=== PATIENT | female | born 1990 | race African-American/Black ===

== ENCOUNTER 2021-12-07 19:22 | Emergency (ER) | payer OTHER, SELFPAY ==
--- NOTE | ~2021-12-07 | US_ITS ---
EXAMINATION: US OB transvaginal DATE: 12/07/2021 22:36 INDICATION: Vaginal bleeding during first trimester TECHNIQUE: Real-time pelvic transabdominal and transvaginal ultrasound was performed. COMPARISON: None. FINDINGS: The uterus measures 10.7 x 5.8 x 7.1 cm. Multiple uterine fibroids distort the uterus and endometrial complex. There is a questionable 11 mm fluid collection in the endometrial canal. There i s an apparent 1.5 x 1.3 cm oval mass of the right adnexa situated between the ovary and uterus with a central fluid component. There is questionable peripheral color flow. The right ovary is difficult t o visualize. The left ovary measures 2.6 x 1.1 x 1.3 cm. There is normal vascular flow in the left ov stephen. There is no free fluid in the pelvis. IMPRESSION: 1. of unknown location. Small fluid collection in the uterus could represent an early gesta tional sac however indeterminate fluid collection of the right adnexa could plausibly reflect an ecto pic versus corpus luteum. Close clinical monitoring is recommended with follow-up beta hCG and ultrasound as necessary. Reviewed, dictated and finalized at location F. IMPRESSION: 1. of unknown location. Small fluid collection in the uterus could re present an early gestational sac however indeterminate fluid collection of the right adnexa could plausibly reflect an ectopic versus corpus luteum. Close clinical monitoring is recommended with follow-up beta hCG and ultrasoun d as necessary.
[2021-12-07 19:32] VITALS: BP 127/82; PULSE 86; RESP 16; TEMP 36.6; O2SAT 100
[2021-12-07 21:34] LABS: Basophils Absolute Auto 0.1 K/mm3 (0.0-0.1); Basophils Percent Auto 0.9 % (0.2-1.2); Eosinophils Absolute Auto 0.4 K/mm3 (0-0.3); Eosinophils Percent Auto 6.7 % (0-4.4); Hematocrit 33.6 % (37.0-47.0); Hemoglobin 11.7 g/dL (12.0-15.0); Immature Granulocyte Absolute 0.01 K/mm3 (0.00-0.031); Immature Granulocyte Percent A 0.2 % (0-0.5); Lymphocytes Absolute Auto 1.96 K/mm3 (0.9-3.2); Lymphocytes Percent Auto 33.9 % (18.3-44.2); Mean Corpuscular HGB Conc 34.8 g/dl (32-36); Mean Corpuscular Hemoglobin 32.1 pg (26-34); Mean Corpuscular Volume 92.3 fl (80-100); Mean Platelet Volume 9.9 fl (7.4-10.4); Monocytes Absolute Auto 0.4 K/mm3 (0.1-0.6); Monocytes Percent Auto 6.7 % (2.6-8.5); Neutrophils Percent Auto 51.6 % (45.5-73.1); Platelet Count Result 291 k/mm3 (150-375); Red Blood Count 3.64 M/mm3 (4.2-5.4); Red Cell Distribution Width 11.8 % (11.5-14.5); White Blood Count 5.8 K/mm3 (4.5-10.0)
--- NOTE | 2021-12-07 23:02 | ED.FEMALEGU ---
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 Last period was November 05. No nausea or vomiting, no dysuria, no vaginal discharge. Related Data Allergies Allergy/AdvReac Type Severity Reaction Status Date / Time No Known Allergies Allergy Verified 12/07/21 19:22 Review of Systems Review of Systems: CONST: No fever. HEENT: No sore throat C/V: No chest pain RESP: No cough GI: No nausea or vomiting : No dysuria. Some vaginal spotting M/S: No joint pain. SKIN: No rash. NEURO: [No headache or focal numbness or weakness] PSYCH: [No depression] FORMERLY [facility] Past Medical History Medical History (Updated 12/08/21 @ 00:26 by Mariam Lutz MD) No active medical problems Social History Social History (Updated 12/07/21 @ 23:04 by Mariam Lutz MD) Alcohol intake: former Exam Narrative: EXAMINATION OF ORGAN SYSTEMS/BODY AREAS: Constitutional: Vital signs per nursing GENERAL:[No acute distress, non-toxic appearing.] HEAD: Normal with no signs of head trauma. EYES: EOMI, conjunctiva normal LUNGS: Nonlabored breathing. HEART: [Regular rate and rhythm] ABD: [Soft], [nontender to palpation] PELVIC: Scant blood in vault, no adnexal or CMT EXT: Normal range of motion SKIN: [No rashes or lesions.] NEURO: [Alert and oriented x 3. No gross focal sensory or strength deficits.] PSYCH: Normal affect Course Vital Signs Vital signs: Vital Signs Temperature 97.8 F 12/07/21 19:32 Pulse Rate 86 12/07/21 19:32 Respiratory Rate 16 12/07/21 19:32 Blood Pressure 127/82 12/07/21 19:32 Pulse Oximetry 100 12/07/21 19:32 Oxygen Delivery Room Air 12/07/21 19:32 Temperature 97.8 F 12/07/21 19:32 Pulse Rate 85 12/08/21 00:02 Respiratory Rate 18 12/08/21 00:02 Blood Pressure 122/34 L 12/08/21 00:02 Pulse Oximetry 100 12/08/21 00:02 Oxygen Delivery Room Air 12/07/21 19:32 MDM - Female Genitourinary MDM Narrative Medical decision making narrative: 31yoF presents with vaginal spotting and positive test, vital signs stable and she is well-appearing on evaluation, ambulating normally and has soft, nontender abdomen, no active vaginal bleeding on exam. Concern is for possible threatened versus possible implantation bleeding, or ectopic . Transvaginal ultrasound ordered. This show of unknown origin possibly ectopic, patient stable at this time with normal vitals, no abdominal pain, or tenderness, stable Hgb. I discussed the case with CLOSET ORGANIZER Dr Mina at [facility] who recommended patient follow-up at their center in 2 days for repeat hCG, discussed return precautions to nearest ER for any new or worsening abdominal pain or bleeding. Patient reports understanding and agreement with the findings and this plan. Lab Data Result diagrams: 12/07/21 21:28 Labs: Lab Results 12/07/21 12/07/21 12/07/21 Range/Units 21:28 21:28 21:28 WBC 5.8 (4.5-10.0) K/mm3 RBC 3.64 L (4.2-5.4) M/mm3 Hgb 11.7 L (12.0-15.0) g/dL Hct 33.6 L (37.0-47.0) % MCV 92.3 (80-100) fl MCH 32.1 (26-34) pg MCHC 34.8 (32-36) g/dl RDW 11.8 (11.5-14.5) % Plt Count 291 (150-375) k/mm3 MPV 9.9 (7.4-10.4) fl Immature Gran % (Auto) 0.2 (0-0.5) % Neut % (Auto) 51.6 (45.5-73.1) % Lymph % (Auto) 33.9 (18.3-44.2) % [place] % (Auto) 6.7 (2.6-8.5) % Eos % (Auto) 6.7 H (0-4.4) % Baso % (Auto) 0.9 (0.2-1.2) % Lymph # (Auto) 1.96 (0.9-3.2) K/mm3 [place] # (Auto) 0.4 (0.1-0.6) K/mm3 Eos # (Auto) 0.4 H (0-0.3) K/mm3 Baso # (Auto) 0.1 (0
[2021-12-08 00:02] VITALS: BP 122/34; PULSE 85; RESP 18; O2SAT 100
== END 2021-12-08 00:35 | disposition home or self-care (01) ==
PROVIDERS: Emergency Provider Emergency Medicine
DX: O20.9 Hemorrhage in early pregnancy, unspecified (principal); Z3A.00 Weeks of gestation of pregnancy not specified
CPT/HCPCS: 36415; 76817; 81025; 84702; 85025; 85461; 99284

== ENCOUNTER 2021-12-24 06:49 | Emergency (ER) | payer OTHER, SELFPAY ==
--- NOTE | ~2021-12-24 | US_ITS ---
EXAMINATION: US OB <=14 wk fetus w TV DATE: 12/24/2021 08:08 INDICATION: Pelvic pain and bleeding during first trimester TECHNIQUE: Real-time pelvic ultrasound utilizing both a transvaginal and transabdominal probe was pe rformed. The interpreting radiologist was not present for the study. COMPARISON: 12/07/2021 FINDINGS: The uterus measures 11.8 x 6.8 x 5.6 cm. There are multiple hypoechoic uterine fibroids, the largest measuring 5.9 cm in maximal diameter. The endometrial complex measures 6 mm. A previously seen 7 mm d iameter possible gestational sac uterine fundus is no longer visualized. No evident intrauterine gest ational sac. The right ovary measures 2.8 x 2.0 x 1.9 cm. Vascular flow identified in the right ovary on color Dop pler. The left ovary is not visualized. There is no free fluid in the pelvis. IMPRESSION: 1. No evident intrauterine gestational sac with differential including early, failed or ectopic pregn johana. A prior 7 mm was fluid collection within the uterus on prior ultrasound which may have represen usman an early gestational sac is no longer visualized. Correlate with serial beta-hCG levels. 2. Fibroid uterus. Reviewed, dictated and finalized at location A. IMPRESSION: 1. No evident intrauterine gestational sac with differential including early, f davion or ectopic . A prior 7 mm was fluid collection within the uterus on prior ultrasound which may have represented an early gestational sac is no longer visualized. Correlate with serial beta-hCG levels. 2. Fibroid uterus.
[2021-12-24 06:54] VITALS: BP 139/96; PULSE 86; RESP 14; TEMP 36.6; O2SAT 100
--- NOTE | 2021-12-24 07:18 | ED.GENADULT ---
HPI - General Adult General Chief complaint: Vaginal Bleeding Stated complaint: vaginal bleeding Time Seen by Provider: 12/24/21 06:52 History of Present Illness HPI narrative: 31-year-old female presenting to the emergency department for evaluation of lower abdominal pain and cramping. Patient suspects she is approximately 6 weeks . Patient states that she began having lower abdominal pain last night and had onset of vaginal bleeding this morning. Related Data Allergies Allergy/AdvReac Type Severity Reaction Status Date / Time No Known Allergies Allergy Verified 12/07/21 19:22 Review of Systems Review of Systems: CONSTITUTIONAL: Denies fever, chills, or sweats. EYES: Denies visual changes, redness, or discharge. ENT: Denies rhinorrhea, congestion, sore throat, or otalgia. CARDIOVASCULAR: Denies chest pain, palpitations, or edema. RESPIRATORY: Denies cough or dyspnea. GASTROINTESTINAL: See HPI GENITOURINARY: See HPI SKIN: Denies rash or itching. MUSCULOSKELETAL: Denies back pain, joint pain, or myalgia. NEUROLOGIC: Denies headache, numbness, or weakness. PSYCHIATRIC: Denies anxiety or depression. [facility] Past Medical History Medical History (Updated 12/25/21 @ 00:00 by Bel Ghosh) No active medical problems Social History Social History (Updated 12/07/21 @ 23:04 by Mariam Lutz MD) Alcohol intake: former Exam Narrative: APPEARANCE: Well appearing, no pain, no distress, well-nourished. HEAD: normocephalic, atraumatic. EYES: PERRLA/EOMI, conjunctivae clear. NOSE: Normal no drainage NECK: Supple. No adenopathy, no masses. RESPIRATORY: Airway patent, respirations nonlabored. Clear to auscultation bilaterally, no rales, rhonchi, wheezing. CARDIOVASCULAR: Regular rate and rhythm without murmurs rubs or gallops. ABDOMINAL: Left-sided and suprapubic tenderness to palpation Genitourinary: No significant vaginal bleeding MUSCULOSKELETAL: Moves all extremities. Strength/ROM intact, No edema, No calf tenderness. NEURO: Alert. Cranial nerves II through XII intact. Intact SKIN: Warm, dry. Normal Color PSYCHIATRIC: Normal affect/mood. Course Course Emergency Course: Patient's beta-hCG has decreased from 700-500. The ultrasound showed no evidence of an ectopic . The previous presumed gestational sac is no longer visualized. Patient does have blood in her urine sample that could just be vaginal contamination. Patient does also does have nitrites in her urine. Patient will be treated with Macrobid for possible underlying urinary tract infection. Urine culture is pending. Case was discussed with STUDENT SERVICES ADVISOR and they are comfortable with the plan for discharge and close follow-up. Patient is be positive, no RhoGAM will be given. Patient was updated on the results of her imaging and probable miscarriage at this point. All question concerns were addressed. Vital Signs Vital signs: Vital Signs Temperature 97.8 F 12/24/21 06:54 Pulse Rate 86 12/24/21 06:54 Respiratory Rate 14 12/24/21 06:54 Blood Pressure 139/96 H 12/24/21 06:54 Pulse Oximetry 100 12/24/21 06:54 Oxygen Delivery Room Air 12/24/21 06:54 Temperature 97.8 F 12/24/21 06:54 Pulse Rate 86 12/24/21 06:54 Respiratory Rate 14 12/24/21 06:54 Blood Pressure 139/96 H 12/24/21 06:54 Pulse Oximetry 100 12/24/21 06:54 Oxygen Delivery Room Air 12/24/21 06:54 Medical Decision Making Vital Signs Vital Signs: Vital Signs Temperature 97.8 F 12/24/21 06:54 Pulse Rate 86 12/24/21 06:54 Respiratory Rate 14 12/24/21 06:54 Blood Pressure 139/96 H 12/24/21 06:54 Pulse Oximetry 100 12/24/21 06:54 Oxygen Delivery Room Air 12/24/21 06:54 Temperature 97.8 F 12/24/21 06:54 Pulse Rate 86 12/24/21 06:54 Respiratory Rate 14 12/24/21 06:54 Blood Pressure 139/96 H 12/24/21 06:54 Pulse Oximetry 100 12/24/21 06:54 Oxygen Delivery Room Air 12/24/21 06:54 Lab Data Lab res
[2021-12-24 07:37] LABS: Basophils Percent Auto 0.5 % (0.2-1.2); Eosinophils Absolute Auto 0.3 K/mm3 (0-0.3); Eosinophils Percent Auto 4.4 % (0-4.4); Hematocrit 37.8 % (37.0-47.0); Hemoglobin 12.6 g/dL (12.0-15.0); Immature Granulocyte Absolute 0.02 K/mm3 (0.00-0.031); Immature Granulocyte Percent A 0.3 % (0-0.5); Lymphocytes Absolute Auto 0.97 K/mm3 (0.9-3.2); Lymphocytes Percent Auto 14.8 % (18.3-44.2); Mean Corpuscular HGB Conc 33.3 g/dl (32-36); Mean Corpuscular Hemoglobin 32.2 pg (26-34); Mean Corpuscular Volume 96.7 fl (80-100); Mean Platelet Volume 9.4 fl (7.4-10.4); Monocytes Absolute Auto 0.4 K/mm3 (0.1-0.6); Monocytes Percent Auto 5.8 % (2.6-8.5); Neutrophils Absolute Auto 4.9 K/mm3 (1.3-6.7); Neutrophils Percent Auto 74.2 % (45.5-73.1); Platelet Count Result 349 k/mm3 (150-375); Red Blood Count 3.91 M/mm3 (4.2-5.4); Red Cell Distribution Width 12.6 % (11.5-14.5); White Blood Count 6.6 K/mm3 (4.5-10.0)
[2021-12-24 07:48] LABS: Prothrombin Time 13.1 Seconds (11.1-14.7)
[2021-12-24] MEDS: fentaNYL CITRATE INJ (*CRX) 100 MCG/2 ML VIAL 50 MCG IV PUSH (08:13)
[2021-12-24] MEDS: SODIUM CHLORIDE 0.9% IV 1,000 ML 999 ML IV CONT (08:13)
[2021-12-24 08:56] LABS: Appearance Urine Cloudy (Clear); Bilirubin Urine 1+ (Negative); Blood Urine 3+ (Negative); Glucose Urine UA Negative (Negative); Ketones Urine Negative (Negative); Leukocyte Esterase Ur Negative LEU/UL (Negative); Nitrate Urine Positive (Negative); Protein Urine 3+ mg/dL (Negative); Urobilinogen Urine 0.2 mg/dL (<2.0); pH Urine 8.5 (5.0-9.0)
[2021-12-24 09:01] LABS: Add Urine Microscopic? YES; Color Urine Light Red (Yellow)
[2021-12-24 09:03] LABS: Bacteria Urine Trace /hpf; Mucus Urine Rare /lpf; RBC Urine >75 /hpf (0-2); Squamous Epithelial Cell Urine Many /hpf (Few); WBC Urine 31-50 /hpf
== END 2021-12-24 09:42 | disposition home or self-care (01) ==
PROVIDERS: Emergency Medicine; Emergency Provider Emergency Medicine
DX: O20.0 Threatened abortion (principal); O99.891 Other specified diseases and conditions complicating pregnancy; D25.9 Leiomyoma of uterus, unspecified; Z3A.01 Less than 8 weeks gestation of pregnancy
CPT/HCPCS: 36415; 76801; 76817; 81001; 84702; 85025; 85610; 87077; 87086; 87186; 96361; 96374; 99284; J3010; J7030

== ENCOUNTER 2022-04-21 18:07 | Emergency (ER) | payer OTHER, SELFPAY ==
[2022-04-21 18:10] VITALS: BP 125/61; PULSE 90; RESP 14; TEMP 36.4; O2SAT 100
== END 2022-04-21 18:24 | disposition left against medical advice (07) ==
LOC: ANHED 18:45
DX: Z32.00 Encounter for pregnancy test, result unknown (principal)
CPT/HCPCS: 99199

== ENCOUNTER 2022-10-28 12:11 | Observation (INO) | payer OTHER, SELFPAY ==
[2022-10-28 12:53] VITALS: BP 112/72; PULSE 103
[2022-10-28 13:00] VITALS: BP 108/80; PULSE 107
[2022-10-28 13:03] LABS: Basophils Percent Auto 0.3 % (0.2-1.2); Eosinophils Percent Auto 0.2 % (0-4.4); Hematocrit 28.6 % (37.0-47.0); Hemoglobin 9.9 g/dL (12.0-15.0); Immature Granulocyte Absolute 0.09 K/mm3 (0.00-0.031); Immature Granulocyte Percent A 0.8 % (0-0.5); Lymphocytes Absolute Auto 0.64 K/mm3 (0.9-3.2); Mean Corpuscular HGB Conc 34.6 g/dl (32-36); Mean Corpuscular Hemoglobin 31.4 pg (26-34); Mean Corpuscular Volume 90.8 fl (80-100); Mean Platelet Volume 8.9 fl (7.4-10.4); Monocytes Absolute Auto 1.2 K/mm3 (0.1-0.6); Monocytes Percent Auto 11.5 % (2.6-8.5); Neutrophils Absolute Auto 8.7 K/mm3 (1.3-6.7); Neutrophils Percent Auto 81.2 % (45.5-73.1); Platelet Count Result 292 k/mm3 (150-375); Red Blood Count 3.15 M/mm3 (4.2-5.4); Red Cell Distribution Width 12.9 % (11.5-14.5); White Blood Count 10.7 K/mm3 (4.5-10.0)
[2022-10-28 13:33] LABS: Appearance Urine Cloudy (Clear); Bacteria Urine 4+ /hpf; Bilirubin Urine Negative (Negative); Blood Urine Negative (Negative); Color Urine Yellow (Yellow); Glucose Urine UA Negative (Negative); Ketones Urine 2+ mg/dL (Negative); Leukocyte Esterase Ur 3+ LEU/UL (NEGATIVE); Need Manual Microscopic Reviewed; Nitrate Urine Negative (Negative); Non Pathogenic Casts 0-2; Protein Urine 1+ mg/dL (Negative); RBC Urine 0-2 /hpf (0-2); Specific Grav Ur 1.012 (1.001-1.035); Squamous Epithelial Cell Urine Many /hpf (Few); WBC Urine >100 /hpf (0-3)
[2022-10-28 13:39] LABS: Add Urine Microscopic? YES
[2022-10-28 14:19] VITALS: BMI 23.6
--- NOTE | 2022-10-28 14:20 | OBADM ---
This patient, Rosette Maher, admitted to the OB room OB Post 115 for observation. Patient/family oriented to hospital policies and general routines including ID bracelet, bed and alarms, visiting hours, pain management, procedures, bathroom and other care routines, personal items, smoking policy, room service/diet, and visiting hours. Patient/Family are encouraged to report perceived risks to care and to ask questions if they do not understand what they are told or what they should do.
--- NOTE | 2022-11-01 07:38 | PM.OBTRLD ---
OB - Triage/Final Diagnosis Visit Information Comments/Additional reasons for admission: I have assessed the risk for this patient, Rosette Maher, and determined that she would benefit from observation care. Evaluation Laboratory results: Laboratory Tests 10/28/22 10/28/22 12:49 12:50 WBC 10.7 H RBC 3.15 L Hgb 9.9 L Hct 28.6 L MCV 90.8 MCH 31.4 MCHC 34.6 RDW 12.9 Plt Count 292 MPV 8.9 Immature Gran % (Auto) 0.8 H Neut % (Auto) 81.2 H Lymph % (Auto) 6.0 L [place] % (Auto) 11.5 H Eos % (Auto) 0.2 Baso % (Auto) 0.3 Lymph # (Auto) 0.64 L [place] # (Auto) 1.2 H Eos # (Auto) 0.0 Baso # (Auto) 0.0 Abs Immat Gran (auto) 0.09 H Absolute Neuts (auto) 8.7 H Absolute Nucleated RBC 0.0 Nucleated RBC % 0.0 Urine Color Yellow Urine Appearance Cloudy H Urine pH 6.0 Ur Specific [place] 1.012 Urine Protein 1+ H Urine Glucose (UA) Negative Urine Ketones 2+ H Ur Blood (Man) Negative Urine Nitrate Negative Urine Bilirubin Negative Urine Urobilinogen 1.0 Ur Leukocyte Esterase 3+ H Add Ur Microanalysis Reviewed Urine RBC 0-2 Urine WBC >100 H Ur Squamous Epith Cells Many H Urine Bacteria 4+ H Urine Casts 0-2 C.trachomatis RNA (TMA) Not detected N.gonorrhoeae RNA (TMA) Not detected Final Diagnosis (1) False labor: Code(s): O47.9 - False labor, unspecified Status: Acute
== END 2022-10-28 14:10 | disposition home or self-care (01) ==
PROVIDERS: Admitting Provider Obstetrics & Gynecology; Visit Provider Obstetrics & Gynecology
DX: O47.03 False labor before 37 completed weeks of gestation, third trimester (principal); O26.893 Other specified pregnancy related conditions, third trimester; R10.9 Unspecified abdominal pain; Z3A.33 33 weeks gestation of pregnancy
CPT/HCPCS: 36415; 81001; 85025; 87077; 87086; 87186; 87491; 87591; 87661; G0378; G0379

== ENCOUNTER 2022-11-16 09:17 | Observation (INO) | payer OTHER, SELFPAY ==
[2022-11-16 10:37] LABS: Appearance Urine Turbid (Clear); Bacteria Urine 4+ /hpf; Bilirubin Urine Negative (Negative); Blood Urine Trace (Negative); Color Urine Yellow (Yellow); Glucose Urine UA Negative (Negative); Ketones Urine 2+ mg/dL (Negative); Leukocyte Esterase Ur 3+ LEU/UL (NEGATIVE); Nitrate Urine Negative (Negative); Non Pathogenic Casts 0-2; Protein Urine 1+ mg/dL (Negative); RBC Urine 0-2 /hpf (0-2); Specific Grav Ur 1.009 (1.001-1.035); Squamous Epithelial Cell Urine None seen /hpf (Few); WBC Urine >100 /hpf (0-3)
[2022-11-16 10:39] LABS: Add Urine Microscopic? YES
[2022-11-16] MEDS: LACTATED RINGERS 1,000 ML 125 ML IV CONT (10:46)
[2022-11-16] MEDS: TERBUTALINE SULFATE 1 MG/ML VIAL 0.25 MG SUB-Q (11:31)
[2022-11-16 11:41] VITALS: PULSE 125; O2SAT 100
[2022-11-16 11:46] VITALS: PULSE 124; O2SAT 100
[2022-11-16] MEDS: fentaNYL CITRATE INJ (*CRX) 100 MCG/2 ML VIAL 50 MCG IV PUSH (12:18)
--- NOTE | 2022-11-26 07:34 | PM.OBTRLD ---
OB - Triage/Final Diagnosis Visit Information Comments/Additional reasons for admission: I have assessed the risk for this patient, Rosette Maher, and determined that she would benefit from observation care. Evaluation Laboratory results: Laboratory Tests 11/16/22 10:05 Urine Color Yellow Urine Appearance Turbid H Urine pH 6.0 Ur Specific [place] 1.009 Urine Protein 1+ H Urine Glucose (UA) Negative Urine Ketones 2+ H Ur Blood (Man) Trace Urine Nitrate Negative Urine Bilirubin Negative Urine Urobilinogen 1.0 Ur Leukocyte Esterase 3+ H Urine RBC 0-2 Urine WBC >100 H Ur Squamous Epith Cells None seen Urine Bacteria 4+ Urine Casts 0-2 Final Diagnosis (1) False labor: Code(s): O47.9 - False labor, unspecified Status: Acute
== END 2022-11-16 13:20 | disposition home or self-care (01) ==
PROVIDERS: Admitting Provider Obstetrics & Gynecology; Visit Provider Obstetrics & Gynecology
DX: O47.03 False labor before 37 completed weeks of gestation, third trimester (principal); O99.891 Other specified diseases and conditions complicating pregnancy; R10.9 Unspecified abdominal pain; Z3A.36 36 weeks gestation of pregnancy
CPT/HCPCS: 81001; 87077; 87086; 87186; 96372; 96374; 96375; G0378; G0379; J0696; J3010; J3105; J7120

== ENCOUNTER 2022-12-09 07:28 | Inpatient (IN) | payer OTHER, BC, SELFPAY ==
[2022-12-09] VITALS (65 sets, daily range): BP systolic 78–149; BP diastolic 40–111; PULSE 60–92; TEMP 36.6–36.9; O2SAT 99–100; BMI 24.7
--- NOTE | 2022-12-09 07:28 | LDADM ---
This patient, Rosette Maher, was admitted to Labor/Delivery/Recovery 104 on 12/09/22 at 07:28. Plans for labor, pain management and were discussed with patient. Patient/family oriented to hospital policies and general routines including ID bracelet, bed and alarms, visiting hours, pain management, procedures, bathroom and other care routines, personal items, smoking policy, room service/diet and guest tray routines, security routines, and visiting hours. Patient/Family are encouraged to report perceived risks to care and to ask questions if they do not understand what they are told or what they should do. See OBIX for further documentation.
--- NOTE | 2022-12-09 07:48 | PM.IMHP ---
H&P: HPI History of Present Illness Date/Time: 12/09/22 07:48 Chief Complaint: induction of labor Narrative: Rosette is a 32yo at 39.4 for elective IOL. 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 Also has history of hysteroscopic myomectomy of 3cm fibroid in ANA. Review of Systems Review of Systems: All systems reviewed & are unremarkable except as noted in HPI and below PMFSH Past Medical History Medical History (Updated 12/09/22 @ 07:52 by Ibeth Montemayor MD) No active medical problems Family History Family History (Updated 11/14/22 @ 15:57 by Tabby Garcia RN) Mother Congestive heart failure HIV (human immunodeficiency virus infection) Asthma Mother No problems noted. Father Malignant neoplasm of prostate Asthma Grandparent Diabetes mellitus Social History Social History (Updated 12/07/21 @ 23:04 by Mariam Lutz MD) Smoking status: Never smoker Alcohol intake: former Substance use: never Spiritual care concerns: No Meds Home Medications and Allergies Home Medications Medication Instructions Recorded Confirmed Type vits no.126-ferrous fum 1 tablet PO DAILY 11/14/22 11/29/22 History 28 mg iron-folic acid 800 mcg tablet (Classic ) Allergies Allergy/AdvReac Type Severity Reaction Status Date / Time No Known Allergies Allergy Verified 11/29/22 13:12 Exam Const: General: no acute distress Resp: Effort & Inspection: normal respiratory effort Auscultation: clear to auscultation bilaterally Cardio: Rate: regular rate Rhythm: regular rhythm GI: GI Palp: Yes Soft to palpation Extrem: General: normal to inspection Assessment and Plan Assessment and plan (1) Elective induction of labor planned: Status: Acute Plan GBS neg IOL mode as indicated per cervical exam- pt late for scheduled IOL FHT category 1 Previously discussed risk of uterine rupture with prior myomectomy, but was ANA and hysteroscopically, so likely low risk.
--- NOTE | 2022-12-09 08:27 | WPDANESEPP ---
Anes - Eval Pre Procedure Procedure: labor pain management Date/Time: 12/09/22 08:27 Surgeon: Albina Preop Diagnosis: Pain during labor Pre Op Diagnosis: Induction of Labor Patient Data Age: 32 Gender: F Height: 1.6 m Weight: 63.5 kg Last Vital Signs Pulse 61 12/09/22 08:16 BP 120/76 12/09/22 08:16 O2 Del Method Room Air 12/09/22 08:15 Allergies Allergy/AdvReac Type Severity Reaction Status Date / Time gluten Allergy Gastrointestinal Verified 12/09/22 08:14 Upset Home Medications Medication Instructions Recorded Confirmed Type vits no.126-ferrous fum 1 tablet PO DAILY 11/14/22 12/09/22 History 28 mg iron-folic acid 800 mcg tablet (Classic ) Patient hx anesthesia problems: none Family hx anesthesia problems: none Results Review: All pre-operative results and documents have been reviewed as part of the pre-operative evaluation. [facility] Past Medical History Medical History (Updated 12/09/22 @ 08:28 by Roxanne Mcclellan CRNA) No active medical problems Family History Family History (Updated 11/14/22 @ 15:57 by Tabby Garcia RN) Mother Congestive heart failure HIV (human immunodeficiency virus infection) Asthma Mother No problems noted. Father Malignant neoplasm of prostate Asthma Grandparent Diabetes mellitus Social History Social History (Updated 12/07/21 @ 23:04 by Mariam Lutz MD) Smoking status: Never smoker Second hand tobacco smoke exposure: No Alcohol intake: former Substance use: never Lack of Transportation: No Lack of Food: Never True Current Housing: I Have Housing Concerned About Future Housing: No Difficulty Paying Gas/Electric Bills: No Difficulty Paying for Meds: No Currently Unemployed: No Education: Associate Degree Difficulty w/ Childcare or Family Care: No Spiritual care concerns: No Exam Day of Procedure 12/09/22 08:27
[2022-12-09] MEDS: LACTATED RINGERS 1,000 ML 125 ML IV CONT ×2 (08:45→19:43)
[2022-12-09 08:47] LABS: Basophils Percent Auto 0.8 % (0.2-1.2); Eosinophils Absolute Auto 0.1 K/mm3 (0-0.3); Eosinophils Percent Auto 2.9 % (0-4.4); Hematocrit 29.8 % (37.0-47.0); Immature Granulocyte Absolute 0.01 K/mm3 (0.00-0.031); Immature Granulocyte Percent A 0.2 % (0-0.5); Lymphocytes Absolute Auto 1.12 K/mm3 (0.9-3.2); Lymphocytes Percent Auto 23.1 % (18.3-44.2); Mean Corpuscular HGB Conc 33.6 g/dl (32-36); Mean Corpuscular Hemoglobin 31.4 pg (26-34); Mean Corpuscular Volume 93.7 fl (80-100); Monocytes Absolute Auto 0.4 K/mm3 (0.1-0.6); Neutrophils Absolute Auto 3.2 K/mm3 (1.3-6.7); Platelet Count Result 373 k/mm3 (150-375); Red Blood Count 3.18 M/mm3 (4.2-5.4); Red Cell Distribution Width 14.3 % (11.5-14.5); White Blood Count 4.9 K/mm3 (4.5-10.0)
[2022-12-09] MEDS: DINOPROSTONE 10 MG VAG INSERT VAGINAL (10:02)
--- NOTE | 2022-12-09 15:54 | PC.NURSE ---
1255 - Introductions were made and mother shared how she would like to feed her baby with [exclusive /pump and feed] along with her past experience. Encouraged mother to place [id number] until the first feeding if infant is stable and to wait on the weight to help stabilize, reduce stress, and improve latching by allowing infant time to explore parent's chest using instincts. Education was shared on how to protect her milk supply with latching and/or using hand expression to remove milk if infant doesn't latch in the first hour, then finger feed colostrum to the to preserve breast focus. Resources provided with educational trifold for bonding and feeding . Parents voiced understanding of information and to call if there is a request for assistance.
[2022-12-09 17:15] LABS: Rapid Plasma Reagin Non-Reactive (NonReactive)
[2022-12-09] MEDS: TERBUTALINE SULFATE 1 MG/ML VIAL 0.25 MG SUB-Q (22:47)
[2022-12-10] VITALS (247 sets, daily range): BP systolic 110–180; BP diastolic 60–112; PULSE 55–99; RESP 12–20; TEMP 36.2–36.9; O2SAT 92–100
[2022-12-10] MEDS: LACTATED RINGERS 1,000 ML 125 ML IV CONT ×3 (01:23→15:00)
[2022-12-10] MEDS: OXYTOCIN 30 UNITS/NS 500 ML 30 UNITS/500 ML BAG IV CONT (01:26)
[2022-12-10] MEDS: fentaNYL CITRATE INJ (*CRX) 100 MCG/2 ML VIAL 50 MCG IV PUSH ×2 (03:14→04:43)
--- NOTE | 2022-12-10 10:09 | PM.OBPNLAB ---
Pain Control Date/time seen: 12/10/22 10:09 Pain control: epidural Pelvic Exam Dilation (cm): 1 Effacement (%): 70 Amniotic membrane status: Ruptured Contractions Monitor mode: Internal Contraction pattern: Irregular Status Comments: category 1 currently with moderate variability, no accels but no decels has been category 2 much of night with intermittent periods of lates and variables, pitocin has been off Assessment and Plan Pitocin rate (mU/min): 0 Comments: We discussed that given a long way to go in labor and baby not having tolerated contractions well thus far, I strongly suspect we will end up delivering via section today. However, at this time it is not emergent and status is reassuring at this time. I offered Rosette CS soon vs another attempt at pitocin. ctx off pitocin q 4-7 and no cervical change in 2 hours. She would like another attempt at pitocin. If baby does not tolerate this attempt, will proceed with CS as we are remote from delivery.
--- NOTE | 2022-12-10 14:25 | WPDHPUPDATE1 ---
History and Physical Update Update Date/Time: 12/10/22 14:25 History and Physical has been reviewed, including an updated exam of the patient. No cervical change since my last note. FHT category 2 with minimal to moderate variability with nonrecurrent variables. Unable to run pitocin higher than 2mu. Pt would like to proceed with CS at this time. Discussed RBA, will proceed. Ancef and azithro. Starting Hgb 10.0. Risks, benefits, and alternatives have been discussed and questions answered. Patient agrees to proceed with procedure.
[2022-12-10] MEDS: ceFAZolin 2 GM/D5W 50 ML 2 GM/50 ML BAG IVPB (14:39)
[2022-12-10] MEDS: AZITHROMYCIN 500 MG/NS 250 ML 500 MG/250 ML BAG 250 MG IVPB (14:47)
--- NOTE | 2022-12-10 15:36 | PM.OBPRVD ---
OB - Delivery Note Procedure Delivery date: 12/10/22 Procedure: Procedures Operation Date: 12/10/22 14:15 <No data on this case meets the specified criteria> primary low transverse section Events: Elective Induction of Labor Intrapartal Events: Arrest of Dilation, Failed Induction of Labor and Decelerations Induction method: Per Pitocin Protocol and Per Cervidil Protocol Delivery monitor: External FHT and Internal Uterine Route of delivery: Prior to decision for section, ACOG/SMFM labor guidelines were considered and discussed with the patient and staff. Decision made to proceed with the section.: Yes Specimen: Yes (placenta) Quantitative Blood Loss (ml): 330 Anesthesia type: Epidural Disposition: Floor Complications: none Narrative: Preop Dx: IUP 39.5, intolerance of labor, failure to progress in labor Pos op Dx: same The patient was taken to the OR and received spinal anesthesia. She was placed in dorsal supine position with left lateral tilt. SCDs and cuenca were placed. She was prepped and draped in the normal sterile fashion. A Pfannensteil skin incision was made and carried through to the underlying layer of fascia. The fascia was incised in the midline and then extended laterally using Booth scissors. The muscles were in the midline and the peritoneum was entered bluntly. The peritoneal incision was extended inferiorly and superiorly with care to avoid the bladder. The bladder blade was then inserted, the vesicouterine peritoneum was grasped, incised with Metzenbaum scissors, and a bladder flap created. The bladder blade was reinserted. Multiple myomata were noted on the uterus. A low transverse uterine incision was made with a scalpel and extended bluntly. AROM was performed and fluid was noted to be clear. The head was delivered, followed by the remainder of the baby. The baby's oropharynx was suctioned. After 30 seconds, the cord was clamped and cut and the infant was handed off. Cord blood was obtained and the placenta was then removed manually. The uterus was exteriorized. A moist lap sponge was used to curette the endometrium. The uterine incision was then closed with one layer of 0-Vicryl in a running, locking fashion. Good hemostasis was noted. The posterior cul de sac was irrigated with normal saline and cleared of all clot and debris. The uterus was returned to the abdomen. Both lateral gutters were then irrigated. The rectus muscles were inspected and found to be hemostatic. The fascia was reapproximated using 0-Vicryl in running fashion. The subcutaneous tissue was irrigated with normal saline and made hemostatic with Bovie electrocautery. The skin was then closed with absorbable yair. Steri strips and a bandage were applied. The uterus was evacuated. The patient tolerated the procedure very well. All counts were correct. She was taken to the recovery room in good condition. Baby Date of : 12/10/22 Time of : 14:58 Weeks of gestation at delivery: 39 gender: Male Weight (pounds): 6 Weight (ounces): 10 presentation: vertex Placenta delivery description: Manual Removal Cord Vessel Description: 3 Vessels and Delayed Cord Clamping score one minute: 9 score five minutes: 9
[2022-12-10] MEDS: KETOROLAC 30 MG/ML VIAL (*BKC) IV PUSH (16:29)
[2022-12-10] MEDS: IBUPROFEN 600 MG TABLET PO (21:13)
[2022-12-10] MEDS: HYDROcodone/acetaminophen (*CRX) 5-325 MG TABLET 1 TAB PO (21:13)
[2022-12-10] MEDS: OXYTOCIN 30 UNITS/NS 500 ML 30 UNITS/500 ML BAG 125 UNITS IV CONT (22:06)
[2022-12-10] MEDS: DEXTROSE 5%/0.45% SOD CHL 1,000 ML 125 ML IV CONT (22:06)
[2022-12-11 01:30] VITALS: BP 149/83; PULSE 58; RESP 16; TEMP 36.7; O2SAT 100
[2022-12-11 06:54] LABS: Basophils Percent Auto 0.3 % (0.2-1.2); Eosinophils Absolute Auto 0.1 K/mm3 (0-0.3); Eosinophils Percent Auto 0.9 % (0-4.4); Hematocrit 24.5 % (37.0-47.0); Hemoglobin 8.1 g/dL (12.0-15.0); Immature Granulocyte Absolute 0.05 K/mm3 (0.00-0.031); Immature Granulocyte Percent A 0.5 % (0-0.5); Lymphocytes Absolute Auto 1.16 K/mm3 (0.9-3.2); Mean Corpuscular HGB Conc 33.1 g/dl (32-36); Mean Corpuscular Hemoglobin 31.3 pg (26-34); Mean Corpuscular Volume 94.6 fl (80-100); Mean Platelet Volume 9.5 fl (7.4-10.4); Monocytes Absolute Auto 0.6 K/mm3 (0.1-0.6); Monocytes Percent Auto 6.3 % (2.6-8.5); Neutrophils Absolute Auto 7.8 K/mm3 (1.3-6.7); Platelet Count Result 270 k/mm3 (150-375); Red Blood Count 2.59 M/mm3 (4.2-5.4); Red Cell Distribution Width 13.8 % (11.5-14.5); White Blood Count 9.7 K/mm3 (4.5-10.0)
[2022-12-11] MEDS: IBUPROFEN 600 MG TABLET PO ×3 (07:17→19:29)
[2022-12-11] MEDS: HYDROcodone/acetaminophen (*CRX) 5-325 MG TABLET 1 TAB PO ×3 (07:17→19:29)
[2022-12-11] MEDS: MULTIVIT/MIN/PREN/FOL AC/IRON TABLET 1 TAB PO (07:18)
[2022-12-11] MEDS: DOCUSATE SODIUM 100 MG CAPSULE PO ×2 (07:18→19:29)
--- NOTE | 2022-12-11 07:33 | P.PNOB_ITS ---
OB - PN: Subj Subjective Date/time seen: 12/11/22 07:33 Patient comments: no complaints and pain well controlled baby status: doing well [place] feeding status: breast and bottle feeding Narrative: POD 1 from primary CS. Doing well. Normal lochia. Eating, ambulating, cuenca still in. BPs remain mildly elevated. Denies sx PreE. Hgb 8.1. OB - PN: Obj Data Labs 12/11/22 06:46 Labs: Laboratory Results - last 24 hr 12/11/22 06:46 WBC 9.7 RBC 2.59 L Hgb 8.1 L Hct 24.5 L MCV 94.6 MCH 31.3 MCHC 33.1 RDW 13.8 Plt Count 270 MPV 9.5 Immature Gran % (Auto) 0.5 Neut % (Auto) 80.0 H Lymph % (Auto) 12.0 L [place] % (Auto) 6.3 Eos % (Auto) 0.9 Baso % (Auto) 0.3 Lymph # (Auto) 1.16 [place] # (Auto) 0.6 Eos # (Auto) 0.1 Baso # (Auto) 0.0 Abs Immat Gran (auto) 0.05 H Absolute Neuts (auto) 7.8 H Absolute Nucleated RBC 0.0 Nucleated RBC % 0.0 OB - PN A/P Plan day: 1 Plan: routine care Comments: UOP 480/7hrs. will do 500cc bolus LR Hgb 8.1- IV iron today and tomorrow BPs remain mildly elevated. will monitor. circumcision done Time Spent With Patient Time: Total time spent is greater than 50% in coordination of care (as documented) at patient's floor/unit and/or counseling patient: Exam Narrative: NAD abdomen soft, appropriately tender, incision bandaged Extremities nontender with 1+ edema
--- NOTE | 2022-12-11 07:48 | WPDANLDPN2 ---
Anes-Prog Note L&D Date/Time: 12/11/22 07:48 Neuro status: Neuro function grossly intact. Vital Signs: Last Vital Signs Temp 36.7 C 12/11/22 01:30 Pulse 58 L 12/11/22 01:30 Resp 16 12/11/22 01:30 BP 149/83 H 12/11/22 01:30 Pulse Ox 100 12/11/22 01:30 O2 Del Method Room Air 12/10/22 17:35 Pain score (VAS): 2 I/O: Intake & Output 12/10/22 12/10/22 12/11/22 15:59 23:59 07:59 Intake Total 2100 Output Total 530 150 Balance 1570 -150 Patient feedback: Patient satisfied with anesthetic care.
--- NOTE | 2022-12-11 07:48 | WPDANLDNPN2 ---
Anes-Prog Note L&D-Neuraxial Date/Time: 12/11/22 07:48 Patient feedback: Patient satisfied with post-operative pain management.
[2022-12-11 08:00] VITALS: BP 114/79; PULSE 69; RESP 16; TEMP 37; O2SAT 100
[2022-12-11] MEDS: IRON SUCROSE COMPLEX 200 MG in SODIUM CHLORIDE 0.9% IV 50 ML 120 MG IVPB (09:58)
--- NOTE | 2022-12-11 13:50 | PC.NURSE ---
[id number] Consulted with patient to assess needs related to . Mother is sitting up in a chair after a primary C/S. Mother is uncomfortable and recently was given some pain medication. Mother is encouraged to relax her tense body by taking deep breaths. Encouraged understanding of the benefits of skin to skin (demonstrating unwrapping infant and placing upright on her chest), stimulating with massage touch, changing positions to encourage wakefulness, how to watch for early feeding cues, responsive feeding, feeding on demand (aiming for 8-12 times in 24 hours, about every 2-3 hours), milk production, building/maintaining a milk supply, duration of feeding, signs of adequate intake/output and how to record on the feeding sheet. Reviewed hand expression and no colostrum was removed. Reviewed positioning and ear, shoulder, hip alignment, supporting the breast to facilitate a deep latch, asymmetrical latch (off-center), leading with the chin with a big, open, wide gape and body close to mother. Infant opens but doesn't suck the breast into the mouth. Infant has received bottles for almost every feeding. holds the nipple in the mouth, then cries. Encouraged [id number] while mother finishes eating her lunch. Discussed initiating pumping to stimulate her breast for a milk supply. Resources used to facilitate learning were used with the mom and baby guide. Mother voiced understanding of skin to skin, stimulating with massage touch, responsive feedings, hand expressed colostrum, talking to infant to encourage if it has been 2 -2.5 hours since the start of the last , to call if infant does not latch, or if there is discomfort with . Resources provided for inpatient/outpatient with the name written on the communication board and the mom/baby guide. Mother voiced understanding of information, will need practice, reinforcement of education and understands to call for a request for assistance. Reported to primary RN and recommended to initiate pumping.
[2022-12-11] MEDS: SIMETHICONE 80 MG TAB.CHEW PO (19:29)
[2022-12-11 20:00] VITALS: BP 140/91; PULSE 75; RESP 16; RESP 18; TEMP 36.6; O2SAT 100
[2022-12-12] MEDS: HYDROcodone/acetaminophen (*CRX) 10-325 MG TABLET 1 TAB PO ×2 (01:10→15:58)
[2022-12-12] MEDS: IBUPROFEN 600 MG TABLET PO ×4 (01:10→21:36)
[2022-12-12] MEDS: SIMETHICONE 80 MG TAB.CHEW PO ×4 (01:12→21:37)
--- NOTE | 2022-12-12 08:13 | PM.OBPNVD ---
OB - PN: Subj Subjective Date/time seen: 12/12/22 08:13 Patient comments: no complaints, pain well controlled, incisional pain, tolerating diet and flatus present OB - PN: Obj Data Labs 12/11/22 06:46 OB - PN A/P Plan day: 2 Plan: routine care Comments: POD#2 LTCS - abdominal pain - patient would like to stay - gas pain Time Spent With Patient Time: Total time spent is greater than 50% in coordination of care (as documented) at patient's floor/unit and/or counseling patient: Exam Const: General: comfortable, no acute distress and alert Resp: Effort & Inspection: normal respiratory effort Auscultation: no crackles, no rales and no rhonchi Cardio: Rate: regular rate Heart sounds: no click, no murmurs and no rubs GI: Inspection: non-distended GI Palp: No Tenderness to palpation present (GI) Auscultation: normal bowel sounds Other: Incision - CDI Extrem: General: normal to inspection, no pedal edema and no calf tenderness
[2022-12-12 08:30] VITALS: BP 133/89; PULSE 91; RESP 18; TEMP 37.2; O2SAT 100
[2022-12-12] MEDS: DOCUSATE SODIUM 100 MG CAPSULE PO ×2 (08:50→15:58)
[2022-12-12] MEDS: MULTIVIT/MIN/PREN/FOL AC/IRON TABLET 1 TAB PO (08:51)
[2022-12-12] MEDS: HYDROcodone/acetaminophen (*CRX) 5-325 MG TABLET 1 TAB PO ×2 (08:52→21:36)
[2022-12-12] MEDS: IRON SUCROSE COMPLEX 200 MG in SODIUM CHLORIDE 0.9% IV 50 ML 120 MG IVPB (10:35)
[2022-12-12 21:46] VITALS: BP 135/87; PULSE 81; RESP 18; TEMP 36.9; O2SAT 100
--- NOTE | 2022-12-13 07:36 | PM.OBPNVD ---
OB - PN: Subj Subjective Date/time seen: 12/13/22 07:36 s/p section day 3 blood pressures occasional elevated, no severe range pressures denies headache, visual changes, epigastric pain flatus present, pain well managed baby doing well OB - PN: Obj Data Labs 12/11/22 06:46 OB - PN A/P Time Spent With Patient Time: Total time spent is greater than 50% in coordination of care (as documented) at patient's floor/unit and/or counseling patient:
--- NOTE | 2022-12-13 07:39 | PM.OBDSVD ---
DS: Admitting Diagnosis Discharge Date 12/13/22 Admitting Diagnosis section DS: Discharge Diagnosis Discharge Diagnosis (1) Delivery by section: Status: Acute OB - DS: Summary OB Procedures : None OB Procedures Intrapartum: OB Procedures: : None Peripartum Data Procedures: Procedures Operation Date: 12/10/22 14:15 Actual Procedure Side Surgeon p Section Ibeth Montemayor MD Time Spent with Patient Time attestation: Total time spent providing and/or coordinating discharge services: DS: Data Data Completed and Pending Pending studies at discharge: Pending at discharge 12/10/22 15:15 Surgical [PTH] Routine Discharge Plan Discharge Attending physician on discharge: Verónica Lama Discharging Clinician: Jeanette Ayala Patient Disposition: Home, Self-Care Activity: pelvic rest Diet: regular Patient Instructions: Antibiotic Form Stand Alone Forms: General Discharge Information Follow-up/Referrals: Ibeth Montemayor MD [Physician] - 1 Week Discharge Medications: New hydrocodone-acetaminophen 5-325 mg Tablet 1 tablet PO Q3H PRN (Reason: Moderate Pain (4-6)) Qty: 30 0RF Continued Classic 28 mg iron- 800 mcg Tablet 1 tablet PO DAILY Date of admission: 12/09/22 07:28 Primary Care Provider: PHYSICIAN,IN STORE DEMONSTRATOR Admitting Provider: Ibeth Montemayor Attending physician on admission: Ibeth Montemayor Condition: Stable
[2022-12-13 08:50] VITALS: PULSE 81; RESP 16; TEMP 37.1; O2SAT 100
[2022-12-13] MEDS: DOCUSATE SODIUM 100 MG CAPSULE PO (09:01)
[2022-12-13] MEDS: HYDROcodone/acetaminophen (*CRX) 5-325 MG TABLET 1 TAB PO (09:01)
[2022-12-13] MEDS: MULTIVIT/MIN/PREN/FOL AC/IRON TABLET 1 TAB PO (09:02)
[2022-12-13] MEDS: IBUPROFEN 600 MG TABLET PO (09:02)
[2022-12-13] MEDS: SIMETHICONE 80 MG TAB.CHEW PO (09:03)
[2022-12-13 09:51] VITALS: BP 125/85
[2022-12-14 08:44] VITALS: BP 142/89; PULSE 86; RESP 18; TEMP 36.6; O2SAT 100
== END 2022-12-13 13:24 | disposition home or self-care (01) | DRG 788 ==
LOC: ANHLDR 07:49 → ANHOB2 12-10 17:58
PROVIDERS: Admitting Provider Obstetrics & Gynecology; Visit Provider Obstetrics & Gynecology
PROC: 10D00Z1 Extraction of Products of Conception, Low, Open Approach (ICD-10-PCS; CPT 59514; principal; 2022-12-10 14:15)
DX: O99.02 Anemia complicating childbirth (principal); Z37.0 Single live birth; Z3A.39 39 weeks gestation of pregnancy; D50.9 Iron deficiency anemia, unspecified; O69.82X0 Labor and delivery complicated by other cord entanglement, without compression, not applicable or unspecified; O61.0 Failed medical induction of labor; O36.8330 Maternal care for abnormalities of the fetal heart rate or rhythm, third trimester, not applicable or unspecified; O62.1 Secondary uterine inertia; O34.13 Maternal care for benign tumor of corpus uteri, third trimester; Z14.1 Cystic fibrosis carrier
CPT/HCPCS: 36415; 85025; 86592; 86850; 86900; 86901; 88307; A9270; J0456; J0690; J1100; J1756; J1885; J2274; J2405; J2590; J2795; J3010; J3105; J7120

== ENCOUNTER 2023-12-16 14:32 | Observation (INO) | payer OTHER, BC, SELFPAY ==
[2023-12-16] VITALS (41 sets, daily range): BP systolic 93–131; BP diastolic 54–85; PULSE 70–87; RESP 14–21; TEMP 36.5–36.7; O2SAT 95–100; BMI 24.0
--- NOTE | ~2023-12-16 | CT_ITS ---
EXAMINATION: CTA chest PE protocol DATE: 12/16/2023 18:56 INDICATION: Chest pain. Shortness of breath. TECHNIQUE: Computed tomography angiography (CTA) of the chest was performed with 100 mL Omnipaque-350 intravenous contrast timed to evaluate the pulmonary arteries. Coronal maximum intensity projection 3D-reconstructions were created by the technologist. Automated exposure control and iterative reconst ruction technique were employed. The dose-length product was 529.41 mGy-cm. COMPARISON: None. FINDINGS: The lungs demonstrate mild atelectasis. No pleural effusion. The heart size is normal. No p ericardial effusion. There is a small sliding hiatal hernia. There is no pulmonary embolus. The bones are unremarkable. IMPRESSION: 1. No pulmonary embolus. 2. Small sliding hiatal hernia. Reviewed, dictated and finalized at location E.
--- NOTE | 2023-12-16 14:45 | ECG_ITS ---
Test Date: 2023-12-16 14:50:26 Measurements Intervals [place] Rate: 91 P: 67 IA: 136 QRS: 53 QRSD: 93 T: 52 QT: 321 QTc: 395 Interpretive Statements SINUS RHYTHM BASELINE WANDER- I, II, III, AVF NORMAL ECG No previous ECG available for comparison Electronically Signed On 12-16-2023 15:07:33 CDT by Emerson Panchal D.O.
[2023-12-16 14:58] LABS: Basophils Percent Auto 0.4 % (0.2-1.2); Eosinophils Absolute Auto 0.3 K/mm3 (0-0.3); Eosinophils Percent Auto 3.7 % (0-4.4); Hematocrit 28.2 % (37.0-47.0); Hemoglobin 9.5 g/dL (12.0-15.0); Immature Granulocyte Absolute 0.04 K/mm3 (0.00-0.031); Immature Granulocyte Percent A 0.6 % (0-0.5); Lymphocytes Absolute Auto 1.09 K/mm3 (0.9-3.2); Lymphocytes Percent Auto 16.1 % (18.3-44.2); Mean Corpuscular HGB Conc 33.7 g/dl (32-36); Mean Corpuscular Hemoglobin 32.4 pg (26-34); Mean Corpuscular Volume 96.2 fl (80-100); Mean Platelet Volume 9.2 fl (7.4-10.4); Monocytes Absolute Auto 0.5 K/mm3 (0.1-0.6); Monocytes Percent Auto 6.7 % (2.6-8.5); Neutrophils Absolute Auto 4.9 K/mm3 (1.3-6.7); Neutrophils Percent Auto 72.5 % (45.5-73.1); Platelet Count Result 327 k/mm3 (150-375); Red Blood Count 2.93 M/mm3 (4.2-5.4); Red Cell Distribution Width 13.2 % (11.5-14.5); White Blood Count 6.8 K/mm3 (4.5-10.0)
[2023-12-16 15:06] LABS: Sodium 135 mmol/L (137-145)
[2023-12-16 15:11] LABS: Prothrombin Time 13.4 Seconds (11.1-14.7)
[2023-12-16 15:19] LABS: Alanine Aminotransferase 10 U/L (6-35); Albumin Level 3.8 g/dL (3.5-5.1); Alkaline Phosphatase 108 U/L (38-126); Anion Gap 6 mmol/L (4-12); Aspartate Amino Transferase 14 U/L (14-36); Bilirubin,Total 0.5 mg/dL (0.2-1.3); Blood Urea Nitrogen 8 mg/dL (7-17); Calcium 8.1 mg/dL (8.4-10.2); Carbon Dioxide 23 mmol/L (22-30); Chloride 106 mmol/L (98-107); Estimated CRCL calculation 102 ml/min; Estimated Glomerular Filt Rate > 60; Glucose 80 mg/dL (65-110); Lipase 75 U/L (23-300); Potassium 3.5 mmol/L (3.4-5.0); Troponin I < 0.012 ng/mL (0.000-0.034)
--- NOTE | 2023-12-16 17:22 | ECG_ITS ---
Test Date: 2023-12-16 18:58:04 Measurements Intervals [place] Rate: 75 P: 67 DE: 145 QRS: 49 QRSD: 92 T: 44 QT: 344 QTc: 385 Interpretive Statements SINUS RHYTHM NORMAL ECG Compared to ECG 12/16/2023 14:50:26 No significant changes Electronically Signed On 12-17-2023 06:07:35 CDT by Emerson Panchal D.O.
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
--- NOTE | 2023-12-16 17:40 | PC.NURSE ---
Alisha WILKINS from OB department here to complete NST.
--- NOTE | 2023-12-16 17:45 | PC.NURSE ---
patient is having baby monitored by OB RN at this time. will do EKG when monitoring complete
[2023-12-16 18:10] LABS: D Dimer 2.51 ug/mL (<0.48); Troponin I < 0.012 ng/mL (0.000-0.034)
[2023-12-16 18:14] LABS: Appearance Urine Clear (Clear); Bilirubin Urine Negative (Negative); Blood Urine Negative (Negative); Color Urine Yellow (Yellow); Glucose Urine UA Negative (Negative); Ketones Urine Negative (Negative); Leukocyte Esterase Ur Negative LEU/UL (Negative); Nitrate Urine Negative (Negative); Protein Urine Trace mg/dL (Negative); Specific Grav Ur 1.012 (1.001-1.035); Urobilinogen Urine 0.2 mg/dL (<2.0)
[2023-12-16 18:15] LABS: Add Urine Microscopic? NO
[2023-12-16 18:17] LABS: Bacteria Urine Rare /hpf; Non Pathogenic Casts 0-2; RBC Urine 0-2 /hpf (0-2); Squamous Epithelial Cell Urine Few /hpf (Few); WBC Urine 0-5 /hpf (0-3)
[2023-12-16] MEDS: SODIUM CHLORIDE 0.9% IV 1,000 ML 999 ML IV CONT (18:56)
--- NOTE | 2023-12-16 19:38 | PC.NURSE ---
Pt arrives to unit from the ER with contractions.
--- NOTE | 2023-12-16 19:56 | PC.NURSE ---
Called Dr. Vogel, update on pt and contractions. Orders received to perform cervical exam and one hour after.
--- NOTE | 2023-12-16 20:17 | OBADM ---
This patient, Rosette Maher, admitted to the OB room OB Post 117 for observation. Patient/family oriented to hospital policies and general routines including ID bracelet, bed and alarms, visiting hours, pain management, procedures, bathroom and other care routines, personal items, smoking policy, room service/diet, and visiting hours. Patient/Family are encouraged to report perceived risks to care and to ask questions if they do not understand what they are told or what they should do.
--- NOTE | 2023-12-16 21:41 | PC.NURSE ---
Pt discharged with instructions to make next appointment with Dr. Vogel, her office will call the pt tomorrow to make appointment, and instructions on when to return to the unit, pt verbalizes understanding.
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
== END 2023-12-16 21:41 | disposition home or self-care (01) ==
LOC: ANHED 19:04 → ANHOBPP 19:34
PROVIDERS: Preventive Medicine Aerospace Medicine; Admitting Provider Obstetrics & Gynecology; Emergency Provider Physician Assistant; Visit Provider Obstetrics & Gynecology
DX: Z04.1 Encounter for examination and observation following transport accident (principal); O47.03 False labor before 37 completed weeks of gestation, third trimester; Z3A.31 31 weeks gestation of pregnancy
CPT/HCPCS: 36415; 59025; 71275; 80053; 81003; 83690; 84484; 85025; 85380; 85610; 85730; 93005; 96360; 99199; 99285; G0378; G0379; J7030; Q9967